=== PATIENT | female | born 1960 | race Caucasian/White ===

== ENCOUNTER → 2016-09-24 | Outpatient (CLI) | payer BC ==
[2014-02-02 12:54] VITALS: BP 122/76
[~2016-09-24] MED LIST: CIPRO 250MG TA250 MG PO; LEVOTHYROXIN0.125 MG PO; PYRIDIUM200 M1 PO
== END ==
LOC: LAB 07:07
DX: E07.89 Other specified disorders of thyroid (principal); E78.00 Pure hypercholesterolemia, unspecified

== ENCOUNTER → 2016-10-22 | Outpatient (CLI) | payer BC ==
[2014-02-02 12:54] VITALS: BP 122/76
== END ==
LOC: CARDREHAB 07:48
DX: Z82.49 Family history of ischemic heart disease and other diseases of the circulatory system (principal); E78.00 Pure hypercholesterolemia, unspecified; E07.89 Other specified disorders of thyroid; Z83.42 Family history of familial hypercholesterolemia; I25.10 Atherosclerotic heart disease of native coronary artery without angina pectoris
CPT/HCPCS: A9500

== ENCOUNTER → 2017-11-24 | Outpatient (CLI) | payer BC ==
[2014-02-02 12:54] VITALS: BP 122/76
[2017-11-24 08:30] LABS: ALBUMIN 3.8 g/dL (3.5-5.0); CALCIUM 8.9 mg/dL (8.4-10.2); POTASSIUM 4.2 mmol/L (3.6-5.0); TOTAL BILIRUBIN 0.5 mg/dL (0.2-1.3); TOTAL PROTEIN 6.5 g/dL (6.3-8.2)
== END ==
LOC: LAB 08:02
PROVIDERS: Family Medicine
DX: E03.9 Hypothyroidism, unspecified (principal); E78.00 Pure hypercholesterolemia, unspecified

== ENCOUNTER → 2017-12-09 | Outpatient (CLI) | payer BC ==
[2014-02-02 12:54] VITALS: BP 122/76
== END ==
LOC: LAB 09:35
PROVIDERS: Family Medicine
DX: Z00.00 Encounter for general adult medical examination without abnormal findings (principal); G47.9 Sleep disorder, unspecified; E03.9 Hypothyroidism, unspecified; E78.00 Pure hypercholesterolemia, unspecified; D18.03 Hemangioma of intra-abdominal structures

== ENCOUNTER → 2018-12-29 | Outpatient (CLI) | payer BC ==
[2014-02-02 12:54] VITALS: BP 122/76
[2018-12-29 07:34] LABS: POTASSIUM 3.9 mmol/L (3.5-5.1)
[2018-12-29 07:35] LABS: ALBUMIN 4.1 g/dL (3.5-5.0)
[2018-12-29 07:37] LABS: TOTAL PROTEIN 6.7 g/dL (6.4-8.3)
[2018-12-29 07:39] LABS: TOTAL BILIRUBIN 0.4 mg/dL (0.2-1.2)
== END ==
LOC: LAB 07:05
PROVIDERS: Family Medicine
DX: Z13.1 Encounter for screening for diabetes mellitus (principal); E03.8 Other specified hypothyroidism; E78.00 Pure hypercholesterolemia, unspecified

== ENCOUNTER → 2019-01-05 | Outpatient (CLI) | payer BC ==
[2014-02-02 12:54] VITALS: BP 122/76
== END ==
LOC: RAD 10:23
DX: M72.2 Plantar fascial fibromatosis (principal); M79.671 Pain in right foot

== ENCOUNTER → 2020-01-21 | Outpatient (CLI) | payer BC ==
[2014-02-02 12:54] VITALS: BP 122/76
[2020-01-21 08:08] LABS: POTASSIUM 3.7 mmol/L (3.5-5.1)
== END ==
LOC: LAB 07:32
PROVIDERS: Family Medicine
DX: E78.00 Pure hypercholesterolemia, unspecified (principal); E07.9 Disorder of thyroid, unspecified

== ENCOUNTER → 2021-02-02 | Outpatient (CLI) | payer BC ==
[2021-02-02 09:27] LABS: ALBUMIN 4.2 g/dL (3.5-5.0); POTASSIUM 4.2 mmol/L (3.5-5.1)
[2021-02-02 09:28] LABS: CALCIUM 9.3 mg/dL (8.3-10.5)
[2021-02-02 09:29] LABS: TOTAL PROTEIN 7.1 g/dL (6.4-8.3)
[2021-02-02 09:31] LABS: TOTAL BILIRUBIN 0.5 mg/dL (0.2-1.2)
== END ==
LOC: LAB 07:21
PROVIDERS: Family Medicine
DX: E07.9 Disorder of thyroid, unspecified (principal); E78.00 Pure hypercholesterolemia, unspecified

== ENCOUNTER → 2022-02-04 | Outpatient (CLI) | payer BC ==
[2022-02-04 07:35] LABS: POTASSIUM 3.9 mmol/L (3.5-5.1)
[2022-02-04 07:37] LABS: CALCIUM 8.8 mg/dL (8.3-10.5)
[2022-02-04 07:38] LABS: TOTAL PROTEIN 6.5 g/dL (6.4-8.3)
[2022-02-04 07:40] LABS: TOTAL BILIRUBIN 0.6 mg/dL (0.2-1.2)
== END ==
LOC: LAB 07:11
PROVIDERS: Family Medicine
DX: E07.9 Disorder of thyroid, unspecified (principal); E78.00 Pure hypercholesterolemia, unspecified; Z13.1 Encounter for screening for diabetes mellitus

== ENCOUNTER → 2022-06-04 | Outpatient (CLI) | payer BC | LOC: LAB 07:09 | DX: Z00.00 Encounter for general adult medical examination without abnormal findings (principal); Z13.1 Encounter for screening for diabetes mellitus; E78.00 Pure hypercholesterolemia, unspecified; E07.9 Disorder of thyroid, unspecified; Z23 Encounter for immunization; Z82.49 Family history of ischemic heart disease and other diseases of the circulatory system ==

== ENCOUNTER → 2024-02-20 | Outpatient (CLI) | payer BC ==
[~2024-02-20] MED LIST changes: +SEPTRA DS 8001 TAB PO
[2024-02-20 09:04] LABS: ALBUMIN 4.3 g/dL (3.4-4.8)
[2024-02-20 09:05] LABS: CALCIUM 9.3 mg/dL (8.3-10.5)
[2024-02-20 09:07] LABS: TOTAL PROTEIN 6.8 g/dL (6.2-8.1)
[2024-02-20 09:08] LABS: TOTAL BILIRUBIN 0.4 mg/dL (0.2-1.2)
== END ==
LOC: LAB 08:36
PROVIDERS: Family Medicine
DX: E03.8 Other specified hypothyroidism (principal)